=== PATIENT | female | born 1990 | race African-American/Black ===

== ENCOUNTER 2018-11-16 18:42 | Emergency (ER) | payer SELFPAY ==
[2018-11-16 19:36] LABS: Bilirubin Negative (Negative); Blood, Urine Negative (Negative); Clarity CLEAR (Clear); Glucose, Urine (Dipstick) Negative (Negative); Leukocyte Negative (Negative); Nitrite Negative (Negative); Protein, Urine (Dipstick) Negative (Neg-Trace); Specific Gravity, Urine 1.021 (1.002-1.036); Urobilinogen 0.2 mg/dL (0.2-1.0); pH, Urine 5.5 (5.0-9.0)
[2018-11-16] MEDS ORDERED: Azithromycin 250 MG TAB ONE (20:51)
[2018-11-16] MEDS ORDERED: Lidocaine 1% PF 5 ML VIAL ONE (20:51)
[2018-11-16] MEDS ORDERED: cefTRIAXone\\ROCEPHIN 250 MG VIAL ONE (20:51)
[2018-11-19 03:19] LABS: Chlamydia by PCR Not Detected (NotDetected); GC by PCR Not Detected (NotDetected)
== END 2018-11-16 21:16 | disposition home or self-care (01) ==
LOC: ERS 18:42
DX: O23.511 Infections of cervix in pregnancy, first trimester (principal); O99.89 Other specified diseases and conditions complicating pregnancy, childbirth and the puerperium; R11.0 Nausea; Z79.899 Other long term (current) drug therapy
CPT/HCPCS: 36415; 81003; 84702; 87480; 87491; 87510; 87591; 87660; 96372; J0696; J2001

== ENCOUNTER 2018-11-30 15:08 | Emergency (ER) | payer SELFPAY ==
[2018-11-30] MEDS ORDERED: Acetaminophen 500 MG TAB ONE (16:10)
[2018-11-30 16:24] LABS: Bilirubin Negative (Negative); Blood, Urine Negative (Negative); Clarity CLEAR (Clear); Glucose, Urine (Dipstick) Negative (Negative); Leukocyte Small (Negative); Nitrite Negative (Negative); Protein, Urine (Dipstick) Negative (Neg-Trace); Specific Gravity, Urine 1.017 (1.002-1.036); Urobilinogen 0.2 mg/dL (0.2-1.0); pH, Urine 6.5 (5.0-9.0)
[2018-11-30 16:25] LABS: Bacteria/HPF None Seen HPF (None Seen); Hyaline Casts/LPF 4-6 HYALINE CAST LPF (0-3 Hyaline); Pathc Cast-AUWi Flag 1.45 (0-2.49); RBC/HPF 0-3 HPF (0-3)
[2018-11-30 16:38] LABS: #Basophils 0.1 thou/uL (0.0-0.2); #Eosinphils 0.1 thou/uL (0.0-0.7); #Lymphocytes 2.3 thou/uL (1.20-3.40); #Monocytes 0.7 thou/uL (0.11-0.59); #Neutrophils 9.2 thou/uL (1.40-6.50); %Basophils 0.7 % (0.0-1.0); %Eosinophils 1.1 % (0.0-10.0); %Lymphocytes 18.8 % (21.0-51.0); %Monocytes 5.5 % (0.0-10.0); %Neutrophils 73.9 % (42.0-75.0); Mean Corpuscular HGB CONC 34.9 g/dL (32.0-36.0); Mean Corpuscular Hemoglobin 31.8 pg (27.0-31.0); Mean Corpuscular Volume 91.2 fL (78.0-98.0); Mean Platelet Volume 8.3 fL (7.4-10.4); Platelet Count 218 thou/uL (130-400); RBC Distribution Width 12.1 % (11.5-14.5); Red Blood Cell (RBC) Count 3.78 mill/uL (4.20-5.40); White Blood Cell (WBC) Count 12.4 thou/uL (4.8-10.8)
== END 2018-11-30 17:42 | disposition home or self-care (01) ==
LOC: ERS 15:08
DX: O21.0 Mild hyperemesis gravidarum (principal); Z79.899 Other long term (current) drug therapy; Z3A.13 13 weeks gestation of pregnancy
CPT/HCPCS: 36415; 81003; 81015; 84702; 85025; 94760

== ENCOUNTER 2019-06-06 19:45 | Inpatient (IN) | payer OTHER ==
[2019-06-06] MEDS ORDERED: hydrALAZINE 20 MG/ML VIAL SLOW IVP PRN (22:39)
[2019-06-06] MEDS ORDERED: Lidocaine 1% (PF) 30 ML VIAL SC PRN (22:39)
[2019-06-06] MEDS ORDERED: Ondansetron PF 4 MG/2 ML Vial IVP PRN (22:39)
[2019-06-06] MEDS ORDERED: Promethazine HCl 25 MG/ML VIAL IM PRN (22:39)
[2019-06-06] MEDS ORDERED: Acetaminophen 500 MG TAB PO PRN (22:39)
[2019-06-06] MEDS ORDERED: Zolpidem Tartrate 5 MG TAB PO PRN (22:39)
[2019-06-06] MEDS ORDERED: Carboprost 250 MCG/ML AMP IM PRN (22:39)
[2019-06-06] MEDS ORDERED: Butorphanol Tartrate 1 MG/ML VIAL SLOW IVP PRN (22:39)
[2019-06-07] MEDS ORDERED: NS / Oxytocin 40 units/1000ml 1,000 ML IV PRN (00:45)
[2019-06-07] MEDS ORDERED: NS w/ Oxytocin 10 units 500 ML IV SCH ×2 (00:45)
[2019-06-07 00:55] VITALS: BMI 24.0
[2019-06-07] MEDS ORDERED: HYDROcodone/Acetaminophen 5/325 mg Tablet PO PRN ×2 (01:00)
[2019-06-07] MEDS ORDERED: Misoprostol 200 MCG TAB PR PRN (01:00)
[2019-06-07] MEDS ORDERED: Ibuprofen 800 MG TAB PO PRN (01:00)
[2019-06-07] MEDS ORDERED: Methylergonovine 0.2 MG/ML VIAL IM PRN (01:00)
[2019-06-07] MEDS ORDERED: Diphenoxylate HCl/Atropine Tablet PO PRN ×2 (01:00)
[2019-06-07] MEDS: Misoprostol 100 MCG TAB VAG SCH ×4 (01:49→16:41)
[2019-06-07 03:06] LABS: Hemoglobin 12.8 g/dL (12.0-16.0); Mean Corpuscular HGB CONC 34.1 g/dL (32.0-36.0); Mean Corpuscular Hemoglobin 32.9 pg (27.0-31.0); Mean Corpuscular Volume 96.3 fL (78.0-98.0); Mean Platelet Volume 10.6 fL (7.4-10.4); Platelet Count 155 thou/uL (130-400); RBC Distribution Width 12.2 % (11.5-14.5); Red Blood Cell (RBC) Count 3.89 mill/uL (4.20-5.40); White Blood Cell (WBC) Count 11.8 thou/uL (4.8-10.8)
[2019-06-07 03:16] LABS: HBSAg Index 0.26 S/CO (0-0.99); Hep B Surf Ag Non-Reactive S/CO (NonReactive)
[2019-06-07 04:44] LABS: Syphilis Antibody Nonreactive (Nonreactive); Syphilis Antibody Index 0.05 S/CO (<1.00 Non-Reactive)
[2019-06-07] MEDS: Lactated Ringer's 1,000 ML IV SCH ×3 (07:55→17:57)
[2019-06-07] MEDS ORDERED: Bicitra 30 ML UDCUP ONE (12:14)
[2019-06-07] MEDS ORDERED: Azithromycin 500 MG VIAL ONE (12:15)
[2019-06-07] MEDS ORDERED: Oxytocin 10 UNITS/ML VIAL ONE (12:59)
[2019-06-07] MEDS ORDERED: ePHEDrine/0.9% NaCl/PF SYRINGE 50 mg/10 ml ONE (12:59)
[2019-06-07] MEDS ORDERED: MORPHINE 5 MG/10 ML PF VIAL ONE (12:59)
[2019-06-07] MEDS ORDERED: Ondansetron PF 4 MG/2 ML Vial ONE ×2 (13:33→14:46)
[2019-06-07] MEDS ORDERED: Midazolam HCl 2 mg/2 ml Vial ONE (13:48)
[2019-06-07] MEDS ORDERED: Ketorolac Tromethamine 30 MG/ML VIAL ONE ×2 (13:50→14:46)
[2019-06-07] MEDS ORDERED: Naloxone HCl 0.4 mg/ml Vial IVP PRN ×2 (14:04)
[2019-06-07] MEDS ORDERED: Ondansetron HCl/PF 4 MG/2 ML Vial IVP PRN (14:04)
[2019-06-07] MEDS ORDERED: diphenhydrAMINE 50 MG/ML VIAL IVP PRN (14:04)
[2019-06-07] MEDS ORDERED: Meperidine HCl/PF 25 MG/ML VIAL SLOW IVP PRN (14:04)
[2019-06-07] MEDS ORDERED: Naloxone HCl 0.4 mg/ml Vial IV PRN (14:04)
[2019-06-07] MEDS ORDERED: Promethazine HCl 25 MG/ML VIAL IM PRN (14:04)
[2019-06-07] MEDS ORDERED: HYDROmorphone 2 MG/ML VIAL SLOW IVP PRN (14:04)
[2019-06-07] MEDS ORDERED: Ondansetron PF 4 MG/2 ML Vial IVP PRN ×2 (14:04→16:45)
[2019-06-07] MEDS ORDERED: L&D-Morphine 4 MG/ML VIAL SLOW IVP PRN (14:04)
[2019-06-07] MEDS ORDERED: Promethazine HCl 25 MG SUPP PR PRN (14:04)
[2019-06-07] MEDS ORDERED: Ketorolac Tromethamine 30 MG/ML VIAL IVP PRN (14:04)
[2019-06-07] MEDS ORDERED: Ketorolac Tromethamine 30 MG/ML VIAL IVP SCH (14:15)
[2019-06-07] MEDS ORDERED: Communication Order-Pharmacy FS SCH (14:15)
[2019-06-07] MEDS ORDERED: ePHEDrine 50 MG/ML VIAL ONE (14:46)
[2019-06-07] MEDS ORDERED: Morphine 4 MG/ML VIAL ONE (14:46)
[2019-06-07] MEDS ORDERED: NS / Oxytocin 40 units/1000ml 1,000 ML ONE (15:56)
[2019-06-07] MEDS ORDERED: Adacel (T-DAP) 0.5 ML SYRINGE IM ONE (16:45)
[2019-06-07] MEDS ORDERED: diphenhydrAMINE 25 MG CAP PO PRN (16:45)
[2019-06-07] MEDS ORDERED: hydrALAZINE 20 MG/ML VIAL SLOW IVP PRN (16:45)
[2019-06-07] MEDS ORDERED: NS / Oxytocin 40 units/1000ml 1,000 ML IV SCH (16:45)
[2019-06-07 17:29] LABS: HIV (1/2) Antibody/Antigen Non-Reactive (NonReactive); HIV 1/2 INDEX 0.17 S/CO (<1.00)
[2019-06-07] MEDS: Acetaminophen 325 MG TAB PO SCH (17:57)
--- NOTE | 2019-06-07 20:36 | PDOC.LDHP ---
Labor and Delivery H&P HPI: 28 y/0 at 40 and 0/7 weeks presents for term induction of labor. Due date: 06/07/19 Grav: 2 Para: 0 Current complications: none Abnormal US findings: No Current medications: pre- vitamins Previous surgical history: none Allergies/Adverse Reactions: Allergies Allergy/AdvReac Type Severity Reaction Status Date / Time No Known Drug Allergies Allergy Verified 06/07/19 01:43 Social history: none - Physical Exam Vital signs reviewed and normal: yes General: NAD, resting, breathing through contractions Heart: RRR Lungs: nonlabored breathing Abdomen: NTTP Extremeties: no edema FHT: category 1 - Assessment L&D Assessment: elective induction at term - Plan Plan: admit to L&D, cervical ripening
[2019-06-08] MEDS: Docusate Calcium (SURFAK) 240 MG CAP PO SCH ×3 (00:23→21:52)
[2019-06-08] MEDS: Acetaminophen 325 MG TAB PO SCH ×7 (00:23→21:54)
[2019-06-08] MEDS: Lactated Ringer's 1,000 ML IV SCH (00:54)
[2019-06-08] MEDS ORDERED: Butorphanol Tartrate 1 MG/ML VIAL SLOW IVP PRN (02:15)
[2019-06-08] MEDS ORDERED: Zolpidem Tartrate 5 MG TAB PO PRN ×2 (02:15)
[2019-06-08 06:37] LABS: Hemoglobin 9.9 g/dL (12.0-16.0); Mean Corpuscular HGB CONC 33.6 g/dL (32.0-36.0); Mean Corpuscular Hemoglobin 32.6 pg (27.0-31.0); Mean Corpuscular Volume 96.8 fL (78.0-98.0); Mean Platelet Volume 10.5 fL (7.4-10.4); Platelet Count 122 thou/uL (130-400); RBC Distribution Width 12.2 % (11.5-14.5); Red Blood Cell (RBC) Count 3.04 mill/uL (4.20-5.40); White Blood Cell (WBC) Count 11.9 thou/uL (4.8-10.8)
[2019-06-08] MEDS: Prenatal Vitamin 1 TAB PO SCH (07:29)
[2019-06-08] MEDS: HYDROcodone/Acetaminophen 5/325 mg Tablet PO PRN ×3 (07:29→21:53)
[2019-06-08] MEDS: Ibuprofen 800 MG TAB PO SCH ×2 (13:54→21:52)
[2019-06-08] MEDS: Simethicone Chewable 80 MG TAB PO PRN ×2 (16:32→21:52)
[2019-06-09] MEDS: Acetaminophen 325 MG TAB PO SCH ×6 (02:08→21:11)
[2019-06-09] MEDS: Ibuprofen 800 MG TAB PO SCH ×3 (05:31→21:08)
[2019-06-09] MEDS: HYDROcodone/Acetaminophen 5/325 mg Tablet PO PRN ×3 (05:31→21:08)
--- NOTE | 2019-06-09 06:13 | PDOC.PP ---
Post Progress Note Post Day #: 1 PO intake tolerated: yes Flatus: yes Ambulation: yes Vital Signs (12 hours) Temp Pulse Resp BP Pulse Ox 06/09/19 05:30 98.6 F 62 16 108/70 06/09/19 00:20 98.2 F 68 16 103/67 06/08/19 19:50 98.3 F 72 16 101/70 99 Weight Weight 140 lb - Physical Examination General: NAD Cardiovascular: no m/r/g, RRR Respiratory: clear to auscultation bilaterally, non-labored breathing Abdominal: + bowel sounds, lochia, no distention Extremities: negative homans (B) Skin: CS incision dry & intact, no rash Neurological: no gross focal deficits Psychiatric: A&Ox3, normal affect Result Diagrams: 06/08/19 05:59 Additional Labs: Post Labs Blood Type B POSITIVE 06/07/19 03:13 Hep Bs Antigen Non-Reactive S/CO (NonReactive) 06/07/19 02:26
--- NOTE | 2019-06-09 06:13 | PDOC.PP ---
Post Progress Note Post Day #: 2 PO intake tolerated: yes Flatus: yes Ambulation: yes Vital Signs (12 hours) Temp Pulse Resp BP Pulse Ox 06/09/19 05:30 98.6 F 62 16 108/70 06/09/19 00:20 98.2 F 68 16 103/67 06/08/19 19:50 98.3 F 72 16 101/70 99 Weight Weight 140 lb - Physical Examination General: NAD Cardiovascular: no m/r/g, RRR Respiratory: clear to auscultation bilaterally, non-labored breathing Abdominal: + bowel sounds, lochia, no distention, appropriately TTP Extremities: negative homans (B) Skin: CS incision dry & intact, no rash Neurological: no gross focal deficits Psychiatric: A&Ox3 Result Diagrams: 06/08/19 05:59 Additional Labs: Post Labs Blood Type B POSITIVE 06/07/19 03:13 Hep Bs Antigen Non-Reactive S/CO (NonReactive) 06/07/19 02:26
[2019-06-09] MEDS: Docusate Calcium (SURFAK) 240 MG CAP PO SCH ×2 (08:14→21:08)
[2019-06-09] MEDS: Prenatal Vitamin 1 TAB PO SCH (08:14)
[2019-06-10] MEDS: Acetaminophen 325 MG TAB PO SCH ×4 (02:04→13:33)
[2019-06-10] MEDS: HYDROcodone/Acetaminophen 5/325 mg Tablet PO PRN ×2 (02:35→13:35)
[2019-06-10] MEDS: Ibuprofen 800 MG TAB PO SCH ×2 (05:02→13:35)
[2019-06-10 08:02] VITALS: BP 110/75; TEMP 98.4
[2019-06-10] MEDS: Prenatal Vitamin 1 TAB PO SCH (09:35)
[2019-06-10] MEDS: Docusate Calcium (SURFAK) 240 MG CAP PO SCH (09:35)
--- NOTE | 2019-06-10 22:51 | OP ---
DATE OF PROCEDURE: 06/07/2019 TIME OF SERVICE: At [address] [facility] Savings Time. PREOPERATIVE DIAGNOSIS: Intrauterine at 40 weeks 0 day with a term induction of labor and non-reassuring heart tones. POSTOPERATIVE DIAGNOSIS: Intrauterine at 40 weeks 0 day with a term induction of labor and non-reassuring heart tones. PROCEDURE: Primary low transverse section. FINDINGS: Viable male infant, 2906 g or 6 pounds 6 ounces. Apgars 8 and 9. QUANTITATIVE BLOOD LOSS: 547 mL. COMPLICATIONS: None. DETAILS OF THE PROCEDURE: The patient was consented and taken back to the operating room where spinal anesthesia was found to be adequate. She was then prepped and draped in the normal sterile fashion. A timeout was performed by the entire operative team. The incision was then marked with a marking pen tested using sharp pickups. An incision was then made with a scalpel. The incision was carried through the adipose tissue down to the underlying rectus fascia using both sharp dissection as well as cautery. Once the fascia was identified, it was incised in the midline and then the fascial incision was carried through in both lateral directions using sharp as well as cautery dissection techniques. Next, the superior aspect of the rectus fascia was grasped with 2 Brittaney clamps, which was tented up and the rectus muscles were dissected off using blunt dissection as well as cautery dissection. Similarly, the inferior aspect of the fascial incision was grasped with 2 Brittaney clamps, tented up and the rectus muscles were dissected off bluntly as well as sharply. Next, the rectus muscles were in the midline and the peritoneum identified. The peritoneum was then carefully grasped with 2 hemostats and entered sharply. The peritoneal incision was extended superiorly and inferiorly and bladder blade was placed in the lower abdomen. At this point, the uterus was identified and the bladder flap was then developed using pickups with teeth as well as Metzenbaum scissors in both lateral directions. The bladder flap was then dissected downwards using the streetcar operator's finger as well as Metzenbaum scissors. The bladder blade was replaced. The lower uterine segment was then identified and entered sharply using a clean scalpel. The uterine incision was then dissected downwards until thin layer of muscle remained and this was entered bluntly using a hemostat to avoid any injury to the baby. The uterine incision was then stretched using two fingers in both lateral directions. An amniotomy was performed artificially using a hemostat and the baby was delivered using fundal pressure in a gentle fashion. Once out, the baby's mouth and nose were bulb suctioned, cord clamped and cut, and the baby was handed to waiting attendants. Next, the uterus was exteriorized, cleared of all clots and debris and the uterine incision was repaired with #1 Monocryl in a running locking fashion. A 2nd suture of the same type was used to obtain complete hemostasis at the uterine incision. The bladder flap was reapproximated using 3-0 Monocryl. Next, patient's left and right adnexa were inspected and appeared to be within normal limits. The posterior cul-de-sac was blotted dry and hemostasis assured. One more look at the uterine incision demonstrated hemostasis. Next, the uterus was replaced back within the abdomen. The peritoneum was reapproximated using 2-0 Monocryl without difficulty. The rectus muscles were then allowed to come back together and 0 chromic was used to aid in reapproximation of the muscle as necessary. The rectus fascia was then reapproximated in a running fashion using 0 Vicryl suture. The adipose tissue was then examined and appeared to be well approximated without any obvious separations. Finally, the skin was reapproximated with 3-0 Monocryl on a Ankit needle without difficulty and Dermabond adhesive was applied to the skin. Once the glue was dry, the drapes were removed and the patient was transferred to an ambulatory bed where she was taken to recovery awake and in stable condition. Sponge, lap, and needle counts were correct x3. Job ID: [id number]
== END 2019-06-10 17:10 | disposition home or self-care (01) | DRG 788 ==
LOC: L&D 06-07 00:29 → 3SW 06-07 17:29
PROVIDERS: ADMIT Obstetrics & Gynecology; ATTEND Obstetrics & Gynecology
PROC: 10D00Z1 Extraction of Products of Conception, Low, Open Approach (ICD-10-PCS; principal; 2019-06-07)
DX: O76 Abnormality in fetal heart rate and rhythm complicating labor and delivery (principal); Z3A.40 40 weeks gestation of pregnancy; Z37.0 Single live birth
CPT/HCPCS: 36415; 51702; 85027; 86780; 86850; 86900; 86901; 87340; 87389; 90715; J0456; J0690; J1885; J2250; J2270; J2274; J2405; J2590; J3490

== ENCOUNTER 2019-09-18 12:11 | Emergency (ER) | payer OTHER ==
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
--- NOTE | 2019-09-18 13:38 | RAD ---
RIGHT SHOULDER 3 VIEWS: HISTORY: Pain. FINDINGS: No evidence of fracture or dislocation. AC joint normally aligned. No abnormality identified. IMPRESSION: Unremarkable right shoulder. POS: [facility]
== END 2019-09-18 14:30 | disposition home or self-care (01) ==
LOC: ERS 12:11
DX: S40.011A Contusion of right shoulder, initial encounter (principal); Y04.8XXA Assault by other bodily force, initial encounter
CPT/HCPCS: 70450; 70486

== ENCOUNTER 2020-01-28 23:13 | Emergency (ER) | payer MEDICAID, SELFPAY ==
[2020-01-28] MEDS ORDERED: PROPOFOL 20 ML ONE (23:53)
--- NOTE | 2020-01-29 09:44 | RAD ---
RIGHT SHOULDER 3 VIEWS: Date: 01/29/2020 INDICATION: Exam is labeled post reduction. There are no pre reduction films available. FINDINGS/IMPRESSION: Humeral head appears normally positioned. AC joint normally aligned. No fracture or dislocation ident ified. POS: [facility]
== END 2020-01-29 00:49 | disposition home or self-care (01) ==
LOC: ERS 23:13
DX: S43.004A Unspecified dislocation of right shoulder joint, initial encounter (principal); X50.1XXA Overexertion from prolonged static or awkward postures, initial encounter
CPT/HCPCS: 23650; 99152; J2704

== ENCOUNTER 2021-08-06 08:43 | Emergency (ER) | payer SELFPAY ==
[2021-08-06 10:00] LABS: Bilirubin Negative (Negative); Blood, Urine Negative (Negative); Clarity Clear (Clear); Glucose, Urine (Dipstick) Normal (Negative); Ketone, Urine Negative (Negative); Leukocyte Negative Leu/uL (Negative); Nitrite Negative (Negative); Protein, Urine (Dipstick) Negative (Neg-Trace); Specific Gravity, Urine 1.019 (1.002-1.036); Urobilinogen Normal mg/dL (Less than 2); pH, Urine 6.5 (5.0-9.0)
[2021-08-06 10:05] LABS: Pregnancy Test - Urine (BHCG) Negative (Negative); Pregu Control Background? CLEAR/WHITE (CLR/WHITE); Pregu Control Bar Appear? YES (CONTROL BAR); Specific Gravity 1.019 (1.002-1.036)
[2021-08-06 10:20] LABS: #Basophils 0.1 thou/uL (0.0-0.2); #Eosinphils 0.1 thou/uL (0.0-0.7); #Monocytes 0.6 thou/uL (0.11-0.59); #Neutrophils 4.4 thou/uL (1.40-6.50); %Basophils 0.8 % (0.0-1.0); %Lymphocytes 28.3 % (21.0-51.0); %Monocytes 8.9 % (0.0-10.0); %Neutrophils 61.1 % (42.0-75.0); Hemoglobin 13.1 g/dL (12.0-16.0); Mean Corpuscular Hemoglobin 32.2 pg (27.0-31.0); Mean Corpuscular Volume 94.9 fL (78.0-98.0); Mean Platelet Volume 8.6 fL (7.4-10.4); Platelet Count 216 thou/uL (130-400); RBC Distribution Width 11.9 % (11.5-14.5); Red Blood Cell (RBC) Count 4.08 mill/uL (4.20-5.40); White Blood Cell (WBC) Count 7.2 thou/uL (4.8-10.8)
[2021-08-06 10:40] LABS: ALT (SGPT) 13 U/L (8-55); AST (SGOT) 22 U/L (5-34); Albumin 3.9 g/dL (3.5-5.0); Alkaline Phosphatase 49 U/L (40-110); Anion Gap 9 mmol/L (10-20); BUN (Urea Nitrogen) 13 mg/dL (7.0-18.7); Bilirubin, Total 0.8 mg/dL (0.2-1.2); Calc. Creatinine Clearance 0 mL/min (70-130); Calcium 9.4 mg/dL (7.8-10.44); Carbon Dioxide 27 mmol/L (22-29); Chloride 104 mmol/L (98-107); Globulin 2.9 g/dL (2.4-3.5); Glucose 93 mg/dL (70-105); Potassium 4.2 mmol/L (3.5-5.1); Protein, Total 6.8 g/dL (6.0-8.3); Sodium 136 mmol/L (136-145)
== END 2021-08-06 15:15 | disposition home or self-care (01) ==
LOC: ERS 08:43
DX: R10.9 Unspecified abdominal pain (principal); R11.2 Nausea with vomiting, unspecified
CPT/HCPCS: 36415; 80053; 81003; 81025; 85025; 99284

== ENCOUNTER 2021-10-09 12:19 | Outpatient (CLI) | payer OTHER ==
[~2021-10-09 12:19] MED LIST: Magnevist 469MG/ML 20 ML VIAL ONE
[2021-10-09] MEDS ORDERED: Iopamidol 300 61% 50 ML VIAL FS ONE (12:40)
[2021-10-09] MEDS ORDERED: Gadobenate Dimeglumine 529 MG/1 ML (20ML VIAL) ONE (12:40)
[2021-10-09] MEDS ORDERED: Lidocaine 1% PF 10 ML AMP ONE (12:40)
[2021-10-09] MEDS ORDERED: EPINEPHrine 1 MG/ML AMP ONE (12:40)
== END 2021-10-09 12:20 | disposition home or self-care (01) ==
LOC: RAD 12:19
PROVIDERS: ATTEND Orthopaedic Surgery
DX: M24.411 Recurrent dislocation, right shoulder (principal)
CPT/HCPCS: 23350; A9577; A9579; J0171; J2001; Q9967

== ENCOUNTER 2021-10-28 14:36 | Outpatient (CLI) | payer OTHER ==
[2021-10-28 15:30] LABS: #Eosinphils 0.1 10x3/uL (0.0-0.5); #Monocytes 0.5 10x3/uL (0.0-1.1); #Neutrophils 5.2 10x3/uL (1.5-8.4); %Basophils 0.5 % (0.0-2.0); %Eosinophils 1.1 % (0.0-6.0); %Lymphocytes 22.3 % (18.0-47.0); %Neutrophils 68.8 % (40.0-75.0); Hemoglobin 12.3 g/dL (12.0-15.5); Mean Corpuscular HGB CONC 33.9 g/dL (32.0-36.0); Mean Corpuscular Hemoglobin 31.1 pg (27.0-33.0); Mean Corpuscular Volume 91.9 fl (81.6-98.3); Platelet Count 240 10x3/uL (150-450); RBC Distribution Width 13.3 % (11.5-14.5); Red Blood Cell (RBC) Count 3.95 10x6/uL (3.90-5.03); White Blood Cell (WBC) Count 7.6 10x3/uL (3.5-10.5)
[2021-10-29 13:00] LABS: SARS-CoV-2 PCR by NAA Not Detected (NotDetected)
== END 2021-10-28 14:37 | disposition home or self-care (01) ==
LOC: LABBT 14:36
PROVIDERS: ATTEND Orthopaedic Surgery
DX: Z01.812 Encounter for preprocedural laboratory examination (principal); M24.411 Recurrent dislocation, right shoulder; Z20.822 Contact with and (suspected) exposure to COVID-19
CPT/HCPCS: 85025; U0003; U0005

== ENCOUNTER 2021-10-31 07:38 | Day surgery (SDC) | payer OTHER ==
[2021-10-29 12:18] VITALS: BMI 19.4
[2021-10-31] MEDS ORDERED: Fentanyl 100 MCG/2 ML VIAL ONE (08:29)
[2021-10-31] MEDS ORDERED: Midazolam HCl 2 mg/2 ml Vial ONE (08:29)
[2021-10-31] MEDS ORDERED: Fentanyl 100 MCG/2 ML VIAL SLOW IVP PRN (09:12)
[2021-10-31] MEDS ORDERED: traMADol HCl 50 MG TAB PO PRN ×2 (09:15)
[2021-10-31] MEDS ORDERED: Promethazine HCl 25 MG/ML VIAL IM PRN (09:15)
[2021-10-31] MEDS ORDERED: HYDROcodone/Acetaminophen 10/325 mg Tablet PO PRN ×2 (09:15)
[2021-10-31] MEDS ORDERED: Zolpidem Tartrate 5 MG TAB PO PRN (09:15)
[2021-10-31] MEDS ORDERED: Ondansetron PF 4 MG/2 ML Vial IVP PRN (09:15)
[2021-10-31] MEDS ORDERED: Ropivacaine 0.2% 550 ML 550 ML NERVE BLCK SCH (09:15)
[2021-10-31] MEDS ORDERED: Ropivacaine 2% HCl/PF (20 MG/10 ML VIAL) ONE (10:47)
[2021-10-31] MEDS ORDERED: Glycopyrrolate 0.2 MG/ML 5 ML SYRINGE ONE (10:47)
[2021-10-31] MEDS ORDERED: PHENYLEPHRINE-NS 100 MCG/ML 10 ML SYRINGE ONE (10:47)
[2021-10-31] MEDS ORDERED: Lidocaine 1% PF 5 ML VIAL ONE (10:47)
[2021-10-31] MEDS ORDERED: PROPOFOL 200 MG/20 ML VIAL ONE (10:47)
[2021-10-31] MEDS ORDERED: Dexamethasone 20 MG/5 ML VIAL ONE (10:47)
[2021-10-31] MEDS ORDERED: Rocuronium Bromide 10 MG/ML (10ML VIAL) ONE (10:47)
[2021-10-31] MEDS ORDERED: Ropivacaine 0.5% HCl/PF (150 MG/30 ML VIAL) ONE (10:47)
[2021-10-31] MEDS ORDERED: Ondansetron PF 4 MG/2 ML Vial ONE (10:47)
== END 2021-10-31 14:45 | disposition home or self-care (01) ==
LOC: SDC 07:38
PROVIDERS: ATTEND Orthopaedic Surgery
PROC: 3E0T3BZ Introduction of Anesthetic Agent into Peripheral Nerves and Plexi, Percutaneous Approach (ICD-10-PCS; principal; 2021-10-31)
PROC: 0RQJ0ZZ Repair Right Shoulder Joint, Open Approach (ICD-10-PCS; principal; 2021-10-31)
DX: M24.411 Recurrent dislocation, right shoulder (principal)
CPT/HCPCS: A4306; C1713; J0690; J1100; J2250; J2405; J2704; J2795; J3010

== ENCOUNTER 2023-12-29 10:37 | Emergency (ER) | payer OTHER | END 2023-12-29 11:13 | disposition home or self-care (01) | LOC: ERS 10:37 | DX: S30.0XXA Contusion of lower back and pelvis, initial encounter (principal); V49.40XA Driver injured in collision with unspecified motor vehicles in traffic accident, initial encounter | CPT/HCPCS: 99283 ==